=== PATIENT | male | born 1960 | race Caucasian/White ===

== ENCOUNTER 2025-04-22 05:31 | Day surgery (SDC) | payer MEDICARE ==
[2025-04-19 12:13] VITALS: BMI 31.6
[2025-04-22] MEDS ORDERED: CEFAZOLIN 2 GM VIAL ONE (06:33)
[2025-04-22] MEDS ORDERED: Bupivacaine HCl 0.5%/Epinephrine 1:200,000/PF 30 ml Vial ONE ×2 (06:33→06:34)
[2025-04-22] MEDS ORDERED: PROPOFOL 20 ML ONE (07:03)
[2025-04-22] MEDS ORDERED: Lidocaine 1% PF 5 ML VIAL ONE (07:29)
[2025-04-22] MEDS ORDERED: Ondansetron PF 4 MG/2 ML Vial ONE (07:29)
== END 2025-04-22 08:40 | disposition home or self-care (01) ==
LOC: CSHSDC 05:31
PROVIDERS: ATTEND Surgery
PROC: 0JH63XZ Insertion of Tunneled Vascular Access Device into Chest Subcutaneous Tissue and Fascia, Percutaneous Approach (ICD-10-PCS; principal; 2025-04-22)
DX: C91.10 Chronic lymphocytic leukemia of B-cell type not having achieved remission (principal); I10 Essential (primary) hypertension; E03.9 Hypothyroidism, unspecified; F17.210 Nicotine dependence, cigarettes, uncomplicated; Z88.8 Allergy status to other drugs, medicaments and biological substances; Z79.82 Long term (current) use of aspirin; Z79.890 Hormone replacement therapy; Z79.899 Other long term (current) drug therapy
CPT/HCPCS: 36561; 71045; J1100; J1642; J2405; J2704; J3010; A6258